=== PATIENT | female | born 1955 | race Two or more races ===

== ENCOUNTER 2023-03-06 04:03 | Emergency (ER) | payer BC, MEDICARE ==
[~2023-03-06] VITALS: Ht 157.5 cm; Wt 116.5 kg
[2023-03-06 04:21] VITALS: O2SAT 100
[2023-03-06 05:10] LABS: BASOPHILS % 0.8 % (0.0-2.0); EOSINOPHILS % 0.4 % (0.0-5.0); HEMOGLOBIN. 13.8 g/dL (12.0-16.0); MEAN CORPUSCULAR HEMOGLOBIN 27.7 pg (28.0-32.0); MEAN CORPUSCULAR VOLUME 86.5 fL (81.0-99.0); MEAN PLATELET VOLUME 8.5 fl (7.4-10.4); MONOCYTES % 3.9 % (2.0-8.0); NEUTROPHILS % 86.9 % (40.0-76.0); PLATELET 646 x1000/uL (130-400); RED BLOOD CELL COUNT 4.98 mill/uL (4.2-5.4); RED CELL DISTRIBUTION WIDTH 15.3 % (11.6-14.6); WHITE BLOOD COUNT 23.5 x1000/uL (4.5-11.0)
[2023-03-06 05:28] LABS: ALANINE AMINOTRANSFERASE 9 IU/L (10-49); ALBUMIN 4.8 g/dL (3.2-4.8); ASPARTATE AMINOTRANSFERASE 14 IU/L (<34); BILIRUBIN TOTAL 0.7 mg/dL (0.1-1.0); CALCIUM 10.1 mg/dL (8.7-10.4); CARBON DIOXIDE 26 mEq/L (21-32); CHLORIDE 103 mEq/L (98-107); CREATININE 0.8 mg/dL (0.6-1.0); ETHANOL BLOOD < 10 mg/dL (<10); GLUCOSE 148 mg/dL (70-105); POTASSIUM 3.6 mEq/L (3.5-5.1); SODIUM 138 mEq/L (136-145); TROPONIN I HIGH SENSITIVITY 18 ng/L (3.0-34); UREA NITROGEN BLOOD 11 mg/dL (9-23)
[2023-03-06] MEDS ORDERED: SODIUM CHLORIDE 0.9% 1000ML BAG (SEPSIS BOLUS) IV ONE (07:30)
[2023-03-06] MEDS ORDERED: PIPERACILLIN/TAZO 3.375G/50ML 50 ML IV ONE (08:15)
[2023-03-06] MEDS ORDERED: VANCOMYCIN 1G PREMIX 200 ML IV ONE (08:15)
[2023-03-06 08:50] LABS: HEMATOCRIT. 44.5 % (36.0-48.0); MEAN CORPUSCULAR HEMOGLOBIN 26.9 pg (28.0-32.0); MEAN CORPUSCULAR HGB CONC 31.4 g/dL (31.0-37.0); MEAN CORPUSCULAR VOLUME 85.7 fL (81.0-99.0); MEAN PLATELET VOLUME 8.7 fl (7.4-10.4); PLATELET 602 x1000/uL (130-400); RED BLOOD CELL COUNT 5.19 mill/uL (4.2-5.4); RED CELL DISTRIBUTION WIDTH 15.6 % (11.6-14.6)
[2023-03-06 08:52] LABS: DIFFERENTIAL COMMENT 1
[2023-03-06 09:07] LABS: PROTHROMBIN TIME 10.3 sec (9.6-11.0)
[2023-03-06 09:08] LABS: ALANINE AMINOTRANSFERASE 10 IU/L (10-49); ASPARTATE AMINOTRANSFERASE 19 IU/L (<34); BILIRUBIN TOTAL 0.8 mg/dL (0.1-1.0); CALCIUM 10.2 mg/dL (8.7-10.4); CARBON DIOXIDE 23 mEq/L (21-32); CHLORIDE 103 mEq/L (98-107); CREATININE 0.8 mg/dL (0.6-1.0); GLUCOSE 142 mg/dL (70-105); POTASSIUM 3.6 mEq/L (3.5-5.1); PROTEIN TOTAL 8.2 g/dL (6.0-8.3); SODIUM 139 mEq/L (136-145); TROPONIN I HIGH SENSITIVITY 22 ng/L (3.0-34); UREA NITROGEN BLOOD 11 mg/dL (9-23)
[2023-03-06 09:15] LABS: CLARITY URINE CLEAR (CLEAR); COLOR URINE DARK YELLOW (YELLOW); GLUCOSE URINE NEGATIVE (NEGATIVE); KETONES URINE TRACE (NEGATIVE); LEUKOCYTE ESTERASE URINE NEGATIVE (NEGATIVE); NITRITE URINE NEGATIVE (NEGATIVE); OCCULT BLOOD URINE TRACE (NEGATIVE); PROTEIN URINE 1+ (NEGATIVE); SPECIFIC GRAVITY URINE 1.031 (1.005-1.030)
[2023-03-06] MEDS ORDERED: ACETAMINOPHEN 325MG TABLET PO ONE (09:15)
[2023-03-06 09:33] LABS: *AMPHETAMINES SCREEN URINE NEGATIVE (NEGATIVE); *BARBITURATES SCREEN URINE NEGATIVE (NEGATIVE); *BENZODIAZEPINES SCREEN URINE NEGATIVE (NEGATIVE); *COCAINE SCREEN URINE NEGATIVE (NEGATIVE); CANNABINOID URINE SCREEN PRESUMPTIVE POSITIVE (NEGATIVE); ECSTASY MDMA SCREEN URINE NEGATIVE (NEGATIVE); METHADONE URINE SCREEN Neg (NEGATIVE); OPIATES URINE SCREEN NEGATIVE (NEGATIVE); PHENCYCLIDINE URINE SCREEN NEGATIVE (NEGATIVE)
[2023-03-06 09:48] LABS: PLATELET ESTIMATE INCREASED
[2023-03-06 10:29] LABS: BACTERIA URINE NONE SEEN; RBC URINE 0-2 /hpf (0-2); SQUAMOUS EPITHELIAL CELL URINE 1+ /lpf (RARE/1+); WBC URINE 0-2 /hpf (0-2); YEAST URINE NONE SEEN
[2023-03-06] MEDS ORDERED: IOHEXOL-350 100 ML BOTTLE ONE (11:05)
[2023-03-06 15:02] VITALS: BP 115/61; PULSE 74; RESP 17; TEMP 98.6
== END 2023-03-06 16:16 | disposition short-term general hospital (02) ==
LOC: ER 04:03 → EDBEDREQSVC 09:07 → CANBEDREQ 12:23 → ER 16:16
DX: A41.9 Sepsis, unspecified organism (principal); M27.2 Inflammatory conditions of jaws; Z20.822 Contact with and (suspected) exposure to COVID-19
CPT/HCPCS: 80053; 80305; 81003; 80320; 87430; 83880; 83605; 85025; 85610; 87040; 87086; 84484; 87070; 87804 ×2; 36415; 84145; 71045; 70491; 93005; 96368; 96365; 96366; 99291; 87426; Q9967; J2543; J3370; J7030; G0480